=== PATIENT | male | born 1970 | race Caucasian/White ===

== ENCOUNTER 2018-04-28 14:36 | Emergency (ER) | payer OTHER ==
[~2018-04-28] VITALS: Ht 175.3 cm; Wt 104.3 kg
[2018-04-28 14:56] LABS: ABSOLUTE BASOPHILS 0.1 thou/uL (0.0-0.2); ABSOLUTE EOSINOPHILS 0.1 thou/uL (0.0-0.7); ABSOLUTE LYMPHOCYTES 1.6 thou/uL (0.8-5.3); ABSOLUTE MONOCYTES 0.5 thou/uL (0.0-1.2); ABSOLUTE NEUTROPHILS 5.9 thou/uL (1.6-8.1); BASOPHILS 0.8 %; EOSINOPHILS 1.5 %; HEMATOCRIT 44.6 % (42.0-52.0); HEMOGLOBIN 15.1 gm/dL (14.0-18.0); LYMPHOCYTES 19.4 %; MCH 27.5 pg (26.0-34.0); MCHC 33.8 g/dL (28.0-37.0); MCV 81.4 fL (80.0-100.0); MONOCYTES 6.6 %; MPV 8.4 fl. (7.2-11.1); NUCLEATED RBCS 0 /100WBC; PLATELET COUNT* 211 thou/uL (150-400); POLYS 71.7 %; RBC 5.48 mil/uL (4.50-6.00); RDW-CV 13.7 % (10.5-14.5); WBC 8.3 thou/uL (4.0-11.0)
[2018-04-28 15:01] LABS: ANION GAP 9 mmol/L (7-16); BUN 19 mg/dL (7-18); CHLORIDE 108 mmol/L (98-107); CO2 24 mmol/L (21-32); GLUCOSE 165 mg/dL (70-99); POTASSIUM 3.7 mmol/L (3.5-5.1); SODIUM 141 mmol/L (136-145)
[2018-04-28 15:04] LABS: APTT 29.3 Seconds (25.0-31.3); PROTIME 9.3 Seconds (9.20-11.50)
[2018-04-28 15:21] LABS: ALBUMIN 3.6 g/dL (3.4-5.0); ALKALINE PHOSPHATASE 99 U/L (46-116); LIPASE 88 U/L (73-393); MAGNESIUM 1.9 mg/dL (1.8-2.4); NT-PRO BRAIN NAT PEPTIDE 10 pg/mL (<300); SGOT 20 U/L (15-37); SGPT 42 U/L (30-65); TOTAL BILIRUBIN 0.3 mg/dL (<0.1-1.0); TOTAL PROTEIN 6.5 g/dL (6.4-8.2); TROPONIN-I LEVEL <0.06 ng/mL (<0.06)
[2018-04-28 16:57] VITALS: BP 117/75
--- NOTE | 2018-04-29 14:46 | EKG ---
[place] [address] ELECTROCARDIOGRAM REPORT Name: ARIADNA BURDICK REGGIE [id number] Admission: 04/28/18 Attend Phys: Discharge: 04/28/18 Date of : 70 Report #: [id number] THIS REPORT FOR: //name// [facility] ED Test Date: 2018-04-28 Test Time: 14:39:18 Pat Name: KARLEE BURDICK Department: Room: Gender: M Educational Paraprofessional: YIN : 1970 Requested By: Carlo Peter Order Number: [id number] MD: Theron Mcguire Measurements Intervals [place] Rate: 67 P: 48 HI: 156 QRS: -24 QRSD: 109 T: 42 QT: 388 QTc: 410 Interpretive Statements Sinus rhythm Borderline left axis deviation ST elev, probable normal early repol pattern No previous ECG available for comparison Electronically Signed On 04-29-2018 14:46:06 CDT by Theron Mcguire [email or web address] <ELECTRONICALLY SIGNED> By: Theron Mcguire MD, [facility] 04/29/18 1446 1439 1439 Theron Mcguire MD, FACC /EPI
--- NOTE | 2018-04-29 14:48 | EKG ---
[place] [address] ELECTROCARDIOGRAM REPORT Name: ARIADNA BURDICK REGGIE [id number] Admission: 04/28/18 Attend Phys: Discharge: 04/28/18 Date of : 70 Report #: [id number] THIS REPORT FOR: //name// [facility] ED Test Date: 2018-04-28 Test Time: 16:27:50 Pat Name: ARIADNA BURDICK Department: Room: Gender: M Entry Level Sales Associate: BERNARDA : 1970 Requested By: Carlo Peter Order Number: [id number] MD: Theron Mcguire Measurements Intervals [place] Rate: 68 P: 31 MT: 155 QRS: -28 QRSD: 102 T: 36 QT: 380 QTc: 405 Interpretive Statements Sinus rhythm Borderline left axis deviation ST elev, probable normal early repol pattern Electronically Signed On 04-29-2018 14:47:52 CDT by Theron Mcguire [email or web address] <ELECTRONICALLY SIGNED> By: Theron Mcguire MD, [facility] 04/29/18 1447 1627 1627 Theron Mcguire MD, FACC /EPI
== END 2018-04-28 16:57 | disposition home or self-care (01) ==
LOC: M.ERS 14:36
PROVIDERS: Family Medicine
DX: R07.9 Chest pain, unspecified (principal); R20.0 Anesthesia of skin; Z90.89 Acquired absence of other organs